=== PATIENT | female | born 1960 | race Caucasian/White ===

== ENCOUNTER 2017-03-02 11:30 | Emergency (ER) | payer BC ==
[2017-03-02 11:49] VITALS: BP 141/83; PULSE 80; TEMP 97.7; BMI 21.5
--- NOTE | 2017-03-02 12:15 | PDOC ---
History of Present Illness - General Chief Complaint: Cold Symptoms Stated Complaint: SINUS INFECTION Time Seen by Provider: 03/02/17 11:41 History Source: Patient Exam Limitations: No Limitations - History of Present Illness Initial Comments: 03/02/17 12:11 56y F hx of htn, hl, presents with nasal congestion, ear pain, sore throat, mild cough without associated fever, cp, sob, leg swelling x 4 days since coming back from [place] where everyone was sick. no associated n/v, diarrhea, abd pain, back pain. Pt endorses mild frontal headache. Past History - Past Medical History Allergies/Adverse Reactions: Allergies Allergy/AdvReac Type Severity Reaction Status Date / Time No Known Allergies Allergy Verified 03/02/17 11:31 Home Medications: Ambulatory Orders Amox-Tr/K Cl [Augmentin - 875Mg Tablet] 1 tab PO BID #14 tablet 03/02/17 Lisinopril [Prinivil] 20 mg PO DAILY 03/02/17 Metoprolol Succinate 25 mg PO DAILY 03/02/17 Multivitamin [Multiple Vitamins] 1 each PO DAILY 03/02/17 Oxymetazoline HCl [Afrin] 15 ml NS BID #1 mist 03/02/17 Rosuvastatin Calcium [Crestor] 10 mg PO DAILY 03/02/17 Cancer: Yes (LEFT BREAST-LUMPECTOMY) Cardiac Disorders: Yes (HX AFIB) COPD: No HTN: Yes Hypercholesterolemia: Yes - Suicide/Smoking/Psychosocial Hx Smoking History: Never smoked Have you smoked in the past 12 months: No Information on smoking cessation initiated: No Hx Alcohol Use: No Drug/Substance Use Hx: No Substance Use Type: None Review of Systems - Review of Systems Able to Perform ROS?: Yes Comments:: 03/02/17 12:12 Constitutional - no reported Fever, Chills, HEENT: +nasal congestion, ear pain, sore throat no reported vision changes, Respiratory: +cough no reported , sob, hemoptysis Cardiac: no reported chest pain, palpitations, light headedness, leg swelling Abd/GI: no reported abd pain, nausea, vomiting, blood per rectum, melena, diarrhea : no reported dysuria, frequency, discharge Musculskelatal - no reported back pain, joint swelling skin - no reported bruising, erythema, rash neurological: + headache no reported, numbness, focal weakness, tingling, ataxia , hematologic: no reported anemia, easy bruising, easy bleeding *Physical Exam - Vital Signs Last Vital Signs Temp Pulse Resp BP Pulse Ox 97.7 F 80 20 141/83 99 03/02/17 11:30 03/02/17 11:30 03/02/17 11:30 03/02/17 11:30 03/02/17 11:30 - Physical Exam Comments: 03/02/17 12:13 GENERAL: The patient is awake, alert, and fully oriented, Nontoxic - in no acute distress. HEAD: Normocephalic, atraumatic, mild tendeness to sinuses on palpation. EYES: extraocular movements intact, sclera anicteric, conjunctiva clear. ENT: smalla mt of d/c in nares, Normal voice, Moist mucous membranes, posterior pharynx clear, mild fullness w/o erythema in L TM NECK: Normal range of motion, supple LUNGS: Breath sounds equal, clear to auscultation bilaterally. No wheezes, no rhonchi, no rales. HEART: Regular rate and rhythm, normal S1 and S2 without murmur, rub or gallop. ABDOMEN: Soft, nontender, normoactive bowel sounds. PSYCH: Normal mood, normal affect. Medical Decision Making - Medical Decision Making 03/02/17 12:14 suspect common cold/nasopharyngitis pt tried suppportive care at home including nettipot without significant improvement will have pt try afrin (very lmited use) and will give abx for persistent symptoms beyond 7 days for possible sinusitis pmd fu I discussed the physical exam findings, ancillary test results and final diagnoses with the patient. I answered all of the patient's questions. The patient was satisfied with the care received and felt comfortable with the discharge plan and treatment plan. The patient will call their primary care physician within 24 hours to arrange follow-up and will return to the Emergency Department with any new, persistent or worsening symptoms. *DC/Admit/Observation/Transfer Diagnosis at time of Disposition: Upper respiratory infection Qualifiers: URI type: acute nasopharyngitis (common cold) Qualified Code(s): J00 - Acute nasopharyngitis [common cold] - Discharge Dispostion Disposition: HOME Condition at time of disposition: Improved Admit: No - Prescriptions Prescriptions: Amox-Tr/K Cl [Augmentin - 875Mg Tablet] 1 tab PO BID #14 tablet Oxymetazoline HCl [Afrin] 15 ml NS BID #1 mist - Referrals - Patient Instructions Printed Discharge Instructions: DI for Viral Upper Respiratory Infection -- Adult, DI for Common Cold Additional Instructions: Return to the emergency department immediately with ANY new, persistent or worsening symptoms including fever,c hills, shortness of breath, headache, or any other concerns. Make sure you stay well hydrated. Use tylenol or motrin as needed for any ahces or fever. Do not start the antibiotics unless you hav symptoms past 03/05. You MUST call and follow up with your doctor tomorrow for further evaluation of your symptoms. Results were discussed with you. Please make sure your doctor reviews the results of your emergency evaluation. - Post Discharge Activity Forms/Work/School Notes: Back to Work
== END 2017-03-02 12:19 | disposition home or self-care (01) ==
LOC: FER 11:30
DX: J00 Acute nasopharyngitis [common cold] (principal); I10 Essential (primary) hypertension; E78.5 Hyperlipidemia, unspecified; I48.91 Unspecified atrial fibrillation; Z85.3 Personal history of malignant neoplasm of breast
CPT/HCPCS: 99282-25

== ENCOUNTER 2017-04-22 11:17 | Emergency (ER) | payer BC ==
[2017-04-22 11:37] VITALS: BMI 21.5
[2017-04-22] MEDS ORDERED: MECLIZINE HCL 25 MG TABLET (FP) PO ONE (11:50)
[2017-04-22] MEDS ORDERED: MECLIZINE HCL 25 MG TABLET (FP) ONE (11:53)
[2017-04-22 11:58] VITALS: TEMP 98.2
--- NOTE | 2017-04-22 11:58 | PDOC ---
History of Present Illness - General History Source: Patient Exam Limitations: No Limitations - History of Present Illness Initial Comments: 04/22/17 12:12 The patient is a 56-year-old female, with a significant past medical history of A-fib, HTN, hypercholesterolemia, peripheral disease, and left breast lumpectomy , who presents to the ED with vertigo symptoms today. The patient is a hospice case manager in the hospital and developed room spinning, nausea, diaphoresis, mouth dryness, and lightheadedness after turning in her chair to speak to her colleague. She denies any loss of consciousness, difficulty speaking, weakness on one side vs the other, or ear pain/ringing. She reports that her symptoms are similar to her past episodes of vertigo, which resolved after the patient received meclizine. The patient reports that she did not eat dinner yesterday because she had a busy day in the office, and had no breakfast today. The patient denies any fever, chills, vomiting, diarrhea, or abdominal pain. Denies any chest pain or shortness of breath. <Sandra Flores - Last Filed: 04/22/17 12:24> <Gabe Uriostegui - Last Filed: 04/22/17 13:48> - General Chief Complaint: Lightheaded Stated Complaint: Nausea/DIZZINES Time Seen by Provider: 04/22/17 11:24 Past History <Sandra Flores - Last Filed: 04/22/17 12:24> - Past Medical History Cancer: Yes (LEFT BREAST-LUMPECTOMY) Cardiac Disorders: Yes (HX AFIB) CVA: No (vertigo) COPD: No HTN: Yes Hypercholesterolemia: Yes Other medical history: vertigo - Suicide/Smoking/Psychosocial Hx Smoking History: Never smoked Have you smoked in the past 12 months: No Information on smoking cessation initiated: No Hx Alcohol Use: No Drug/Substance Use Hx: No Substance Use Type: None <Gabe Uriostgeui - Last Filed: 04/22/17 13:48> - Past Medical History Allergies/Adverse Reactions: Allergies Allergy/AdvReac Type Severity Reaction Status Date / Time No Known Allergies Allergy Verified 04/22/17 11:34 Home Medications: Ambulatory Orders Amox-Tr/K Cl [Augmentin 875-125mg Tablet -] 1 tab PO BID #14 tablet 03/02/17 Lisinopril [Prinivil] 20 mg PO DAILY 03/02/17 Metoprolol Succinate 25 mg PO DAILY 03/02/17 Multivitamin [Multiple Vitamins] 1 each PO DAILY 03/02/17 Oxymetazoline HCl [Afrin] 15 ml NS BID #1 mist 03/02/17 Rosuvastatin Calcium [Crestor] 10 mg PO DAILY 03/02/17 Meclizine HCl [Antivert -] 50 mg PO TID PRN #30 tablet 04/22/17 Review of Systems - Review of Systems Able to Perform ROS?: Yes <Sandra Flores - Last Filed: 04/22/17 12:24> - Review of Systems Constitutional: No: Chills, Fever HEENTM: No: Recent change in vision, Double Vision Respiratory: No: Shortness of Breath Cardiac (ROS): No: Chest Pain, Syncope ABD/GI: Yes: Nausea. No: Diarrhea, Vomiting Neurological: Yes: Dizziness. No: Headache, Weakness All Other Systems: Reviewed and Negative <Gabe Uriostegui - Last Filed: 04/22/17 13:48> *Physical Exam - Vital Signs Last Vital Signs Temp Pulse Resp BP Pulse Ox 98.2 F 90 18 150/86 100 04/22/17 11:17 04/22/17 11:17 04/22/17 11:17 04/22/17 11:17 04/22/17 11:17 - Physical Exam Comments: 04/22/17 12:13 GENERAL: The patient is awake, alert, and fully oriented, in no acute distress. HEAD: Normal with no signs of trauma. EYES: Pupils equal, round and reactive to light, extraocular movements intact, sclera anicteric, conjunctiva clear with no pallor. ENT: Ears normal, nares patent, oropharynx clear without exudates. Moist mucous membranes. NECK: Normal range of motion, supple without lymphadenopathy, JVD, or masses. LUNGS: Breath sounds equal, clear to auscultation bilaterally. No wheeze/ crackles. HEART: Regular rate and rhythm, normal S1 and S2 without murmur or rub. ABDOMEN: Soft/nontender/nondistended. BS wnl. No guarding or rebound. No palpable masses. No hepatosplenomegaly. EXTREMITIES: Normal range of motion, no edema. No clubbing or cyanosis. No cords, erythema, or tenderness. PSYCH: Normal mood, normal affect. SKIN: Warm, Dry, normal turgor, no rashes or lesions noted. NEURO: Mental status: The patient is alert and oriented x3. Cranial nerves: Cranial nerves II through XII are intact Motor: The upper extremities are 5 over 5 in all muscle groups. The lower extremities are 5 over 5 in all muscle groups. No pronator drift. Sensation: Sensation is intact to light touch throughout. Cerebellar: [id number] is normal in both upper extremities. Heel-knee- king is normal in both lower extremities. Reflexes: 2+ and symmetric in the upper and lower extremities. Gait: Normal. Heel and toe walking are normal. Tandem gait is normal. (+)Vertigo is exacerbated with rightward head rotation. <Sanrda Flores - Last Filed: 04/22/17 12:24> - Vital Signs Last Vital Signs Temp Pulse Resp BP Pulse Ox 9802 F H 90 18 150/86 100 04/22/17 11:17 04/22/17 11:17 04/22/17 11:17 04/22/17 11:17 04/22/17 11:17 <Gabe Uriostegui - Last Filed: 04/22/17 13:48> Heart Score/ECG Review #1 ECG reviewed & interpreted by me at: 11:35 General ECG Interpretation: Sinus Rhythm, Normal Rate (76), Normal Intervals ( QTC slightly elevated at 488), No acute ischemic changes <Gabe Uriostegui - Last Filed: 04/22/17 13:48> ED Treatment Course - Medications Given in the ED: ED Medications Discontinued Medications Generic Name Dose Route Start Last Admin Trade Name Freq PRN Reason Stop Dose Admin Meclizine HCl 50 mg 04/22/17 11:50 04/22/17 11:56 Antivert - PO 04/22/17 11:51 50 mg ONCE ONE Administration <Sandra Flores - Last Filed: 04/22/17 12:24> Medical Decision Making - Medical Decision Making 04/22/17 11:56 A portion of this note was documented by scribe services under my direction. I have reviewed the details of the note, within reason, and agree with the documentation with the following case summary and management plan written by me. 56-year-old female with history of hypertension and peripheral vertigo presents with positional dizziness. Patient is a hospice case manager in the hospital, she turned in her chair speak to her colleague and developed room spinning with nausea, diaphoresis, lightheadedness. No actual loss of consciousness, the vertigo would resolve but return with any positional changes, presents for evaluation. Denies any cardiopulmonary complaints, states similar to her past vertigo which was treated with meclizine successfully. Patient notes she's had decreased by mouth intake due to a busy schedule since yesterday, did not eat dinner or breakfast. Blood pressure within normal limits, 140/70 on my examination Pupils are equal round and reactive to light, extraocular movements are intact Neurological exam is nonfocal, vertigo is reproducible with rightward head deviation and gaze 56-year-old female with presentation consistent with peripheral vertigo, neurologically intact with normal vital signs. Well-appearing, fingerstick glucose was 82. PO intake Trial of meclizine, no indication for emergent imaging Reassess 04/22/17 13:41 Markedly improved after meclizine, now standing/ambulating with normal gaze and improved sxs. neuro intact, BP improved. Agrees with d/c plan on meclizine, understands return criteria. <Gabe Uriostegui - Last Filed: 04/22/17 13:48> *DC/Admit/Observation/Transfer - Attestations Scribe Attestion: 04/22/17 12:17 Documentation prepared by Sandra Flores, acting as medical office technician for Gabe Uriostegui MD. <Sandra Flores - Last Filed: 04/22/17 12:24> <Gabe Uriostegui - Last Filed: 04/22/17 13:48> Diagnosis at time of Disposition: Vertigo - Discharge Dispostion Disposition: HOME Condition at time of disposition: Improved - Prescriptions Prescriptions: Meclizine HCl [Antivert -] 50 mg PO TID PRN #30 tablet PRN Reason: Vertigo - Referrals Referrals: Krysta Jones MD [Primary Care Provider] - Peter Corona MD [Staff Physician] - - Patient Instructions Printed Discharge Instructions: DI for Benign Paroxysmal Positional Vertigo Additional Instructions: Activity as tolerated. Stay hydrated. Your symptoms are typical of peripheral vertigo. Take Meclizine as prescribed as needed for your vertigo. Continue your medications as previously prescribed by your physician. You should follow up with Dr. Jones as soon as possible regarding today's emergency department visit. You can also consider calling a neurologist. Return to the emergency department for any new or concerning symptoms, particularly persistent vertigo, headache, vision change or focal weakness. - Post Discharge Activity
[2017-04-22 14:00] VITALS: BP 131/89; PULSE 69
--- NOTE | 2017-04-22 14:13 | EKG ---
Test Reason : Blood Pressure : / mmHG Vent. Rate : 076 BPM Atrial Rate : 076 BPM P-R Int : 138 ms QRS Dur : 070 ms QT Int : 434 ms P-R-T Axes : -02 013 017 degrees QTc Int : 488 ms NORMAL SINUS RHYTHM PROLONGED QT ABNORMAL ECG WHEN COMPARED WITH ECG OF 04-DEC-2009 02:21, NO SIGNIFICANT CHANGE WAS FOUND Confirmed by MD Deleon Edward ([id number]) on 04/22/2017 2:13:00 PM Referred By: Confirmed By:Jaden Deleon MD
== END 2017-04-22 13:45 | disposition home or self-care (01) ==
LOC: JER 11:17
DX: R42 Dizziness and giddiness (principal); I10 Essential (primary) hypertension
CPT/HCPCS: 82962; 93005; 93010; 99282-25

== ENCOUNTER 2018-12-25 14:30 | Emergency (ER) | payer BC ==
[2018-12-25] MEDS ORDERED: IBUPROFEN 600 MG TABLET (FP) PO ONE ×2 (14:34→14:57)
--- NOTE | 2018-12-25 14:34 | PDOC ---
Rapid Medical Evaluation Medical Evaluation: Allergies Allergy/AdvReac Type Severity Reaction Status Date / Time No Known Allergies Allergy Verified 04/22/17 11:34 I have performed a brief in-person evaluation of this patient. The patient presents with a chief complaint of: c/o R wrist injury; states she slipped in room outside Pertinent physical exam findings: +mild swelling and TTP along ulnar aspect of R wrist/dorsal aspect of R hand I have ordered the following: Xray, motrin The patient will proceed to the ED for further evaluation. 12/25/18 14:32
[2018-12-25 14:37] VITALS: BP 141/87; PULSE 71; TEMP 97.8; BMI 23.3
--- NOTE | 2018-12-25 15:33 | PDOC ---
History of Present Illness - General Chief Complaint: Injury Stated Complaint: RT WRIST HURT Time Seen by Provider: 12/25/18 14:32 - History of Present Illness Initial Comments: 12/25/18 15:28 CHIEF COMPLAINT: wrist pain, fall HISTORY OF PRESENT ILLNESS: 58 yo F presents to fast track s/p fall. Patient reports going to an event last night and slipped and fell on her right arm. She reports full ROM to her right elbow, wrist, hand, and fingers, but that her wrist hurts with movement. Patient denies trauma to head or LOC after fall. No recent travel or sick contacts. PAST MEDICAL HISTORY: Denies past medical history FAMILY HISTORY: Denies SOCIAL HISTORY: Denies tobacco, alcohol, illicit drug use. SURGICAL HISTORY: Denies ALLERGIES: No known drug allergies REVIEW OF SYSTEMS General/Constitutional: Denies fever or chills. Denies weakness, weight change. HEENT: Denies change in vision. Denies ear pain or discharge. Denies sore throat. Cardiovascular: Denies chest pain or shortness of breath. Respiratory: Denies cough, wheezing, or hemoptysis. Gastrointestinal: Denies nausea, vomiting, diarrhea or constipation. Denies rectal bleeding. Genitourinary: Denies dysuria, frequency, or change in urination. Musculoskeletal: Right wrist pain Skin and breasts: Denies rash or easy bruising. Neurologic: Denies headache, vertigo, loss of consciousness, or loss of sensation. Psychiatric: Denies depression or anxiety. PHYSICAL EXAM General Appearance: Well-appearing, appropriately dressed. No apparent distress , no intoxication. HEENT: EOMI, PERRLA, normal ENT inspection, normal voice, TMs normal, pharynx normal. No conjunctival pallor. No photophobia, scleral icterus. Neck: Supple. Trachea midline. No tenderness, rigidity, carotid bruit, stridor , lymphadenopathy, or thyromegaly. Respiratory/Chest: Lungs CTAB. No shortness of breath, chest tenderness, respiratory distress, accessory muscle use. No crackles, rales, rhonchi, stridor , wheezing, dullness Cardiovascular: RRR. S1, S2. No JVD, murmur, bradycardia, tachycardia. Vascular Pulses: Dorsalis-Pedis (R): 2+, Dorsalis-Pedis (L): 2+ Gastrointestinal/Abdominal: Normal bowel sounds. Abdomen soft, non-distended. No tenderness or rebound tenderness. No organomegaly, pulsatile mass, guarding , hernia, hepatomegaly, splenomegaly. Lymphatic: No adenopathy, tenderness. Musculoskeletal/Extremities: Ecchymosis to ulnar aspect to right wrist, full flexion/extension, neurovascularly intact. Normal inspection. FROM of all extremities, normal capillary refill. Pelvis Stable. No CVA tenderness. No tenderness to extremities, pedal edema, swelling, erythema or deformity. Integumentary: Appropriate color, dry, warm. No cyanosis, erythema, jaundice or rash Neurologic: inductor tester II-XII intact. Fully oriented, alert. Appropriate mood/affect. Motor strength 5/5. No appreciable EOM palsy, facial droop or sensory deficit. Past History - Past Medical History Allergies/Adverse Reactions: Allergies Allergy/AdvReac Type Severity Reaction Status Date / Time No Known Allergies Allergy Verified 12/25/18 14:33 Home Medications: Ambulatory Orders Amox-Tr/K Cl [Augmentin 875-125mg Tablet -] 1 tab PO BID #14 tablet 03/02/17 Lisinopril [Prinivil] 20 mg PO DAILY 03/02/17 Metoprolol Succinate 25 mg PO DAILY 03/02/17 Multivitamin [Multiple Vitamins] 1 each PO DAILY 03/02/17 Oxymetazoline HCl [Afrin] 15 ml NS BID #1 mist 03/02/17 Rosuvastatin Calcium [Crestor] 10 mg PO DAILY 03/02/17 Meclizine HCl [Antivert -] 50 mg PO TID PRN #30 tablet 04/22/17 Diclofenac Sodium 50 mg PO BID #20 tablet. 12/25/18 Cancer: Yes (LEFT BREAST-LUMPECTOMY) Cardiac Disorders: Yes (HX AFIB) CVA: No (vertigo) COPD: No HTN: Yes Hypercholesterolemia: Yes - Psycho Social/Smoking Cessation Hx Smoking History: Never smoked Have you smoked in the past 12 months: No Hx Alcohol Use: No Drug/Substance Use Hx: No Substance Use Type: None *Physical Exam - Vital Signs Last Vital Signs Temp Pulse Resp BP Pulse Ox 97.8 F 71 18 141/87 98 12/25/18 14:33 12/25/18 14:33 12/25/18 14:33 12/25/18 14:33 12/25/18 14:33 ED Treatment Course - Medications Given in the ED: ED Medications Discontinued Medications Generic Name Dose Route Start Last Admin Trade Name Lamar PRN Reason Stop Dose Admin Ibuprofen 600 mg 12/25/18 14:34 12/25/18 14:58 Motrin - PO 12/25/18 14:35 600 mg ONCE ONE Administration Medical Decision Making - Medical Decision Making 12/25/18 15:31 58 yo F presents to fast track with wrist pain s/p fall. -wrist x-ray x-ray negative wrist splint, NSAIDS Advised patient to take medication as prescribed and follow up with ortho if symptoms persist.. Advised patient of signs and symptoms for return to ED. Patient verbalized understanding and agrees to plan. Discharge - Discharge Information Problems reviewed: Yes Clinical Impression/Diagnosis: Ecchymosis of wrist Wrist strain Qualifiers: Encounter type: initial encounter Laterality: right Qualified Code(s): S66.911A - Strain of unspecified muscle, fascia and tendon at wrist and hand level, right hand, initial encounter Condition: Stable Disposition: HOME - Admission No - Additional Discharge Information Prescriptions: Diclofenac Sodium 50 mg PO BID #20 tablet.dr - Follow up/Referral Referrals: Krysta Jones MD [Primary Care Provider] - Vance Jean MD [Staff Physician] - - Patient Discharge Instructions Patient Printed Discharge Instructions: DI for Wrist Strain Additional Instructions: Please take medication as prescribed. As discussed, if your symptoms do not improve in 5-7 days, please follow up with an orthopedics for further evaluation and a possible MRI or physical therapy. If you experience any loss of sensation to your extremities, any severe swelling or increased pain to your wrists, please return to the ER. - Post Discharge Activity
== END 2018-12-25 15:44 | disposition home or self-care (01) ==
LOC: JERFT 14:30
PROC: 2W3CX1Z Immobilization of Right Lower Arm using Splint (ICD-10-PCS; principal; 2018-12-25)
DX: S66.811A Strain of other specified muscles, fascia and tendons at wrist and hand level, right hand, initial encounter (principal); S60.211A Contusion of right wrist, initial encounter; W01.0XXA Fall on same level from slipping, tripping and stumbling without subsequent striking against object, initial encounter; Y93.89 Activity, other specified; Y92.89 Other specified places as the place of occurrence of the external cause; Y99.8 Other external cause status; I10 Essential (primary) hypertension; E78.00 Pure hypercholesterolemia, unspecified; I48.91 Unspecified atrial fibrillation; Z85.3 Personal history of malignant neoplasm of breast
CPT/HCPCS: 73110-TC-RT-FY; 73130-TC-RT-FY; 99281-25

== ENCOUNTER 2021-07-15 12:08 | Emergency (ER) | payer BC ==
[2021-07-15 12:19] VITALS: BP 157/81; PULSE 87; TEMP 98.9; BMI 24.3
[2021-07-15] MEDS ORDERED: IBUPROFEN 400 MG TABLET (FP) PO ONE ×2 (12:36→12:38)
[2021-07-15] MEDS ORDERED: LIDOCAINE VISCOUS 2% ORAL/TOP 15 ML UNIT-DOSE CUP MM ONE (12:36)
[2021-07-15] MEDS ORDERED: LIDOCAINE VISCOUS 2% ORAL/TOP 15 ML UNIT-DOSE CUP ONE (12:38)
== END 2021-07-15 12:58 | disposition home or self-care (01) ==
LOC: FER 12:08
DX: K12.0 Recurrent oral aphthae (principal)
CPT/HCPCS: 99283-25

== ENCOUNTER 2024-02-07 10:37 | Emergency (ER) | payer OTHER ==
[2024-02-07 10:57] VITALS: BP 124/74; PULSE 86; RESP 18; TEMP 97.9; BMI 23.1
[2024-02-07] MEDS ORDERED: IBUPROFEN 600 MG TABLET (FP) PO ONE (11:49)
[2024-02-07] MEDS ORDERED: ONDANSETRON *ODT* 4 MG TABLET ONE (11:50)
[2024-02-07] MEDS: SODIUM CHLORIDE FOR INHALATION 3 ML VIAL.NEB IH ONE (11:59)
[2024-02-07] MEDS: ONDANSETRON *ODT* 4 MG TABLET SL ONE (11:59)
[2024-02-07] MEDS: IBUPROFEN 600 MG TABLET (FP) PO ONE (11:59)
== END 2024-02-07 13:30 | disposition home or self-care (01) ==
LOC: JERFT 10:37
DX: R09.81 Nasal congestion (principal); R05.9 Cough, unspecified; R51.9 Headache, unspecified; M79.10 Myalgia, unspecified site; J06.9 Acute upper respiratory infection, unspecified; Z20.822 Contact with and (suspected) exposure to COVID-19
CPT/HCPCS: 0241U-QW; 71046-TC-FY; 99284-25; Q0162

== ENCOUNTER 2024-06-27 15:10 | Emergency (ER) | payer OTHER, MEDICARE ==
[2024-06-27 15:48] VITALS: BP 135/69; PULSE 100; RESP 185; TEMP 101.3; BMI 21.9
[2024-06-27] MEDS ORDERED: KETOROLAC TROMETHAMINE 30 MG/1 ML VIAL ONE (16:10)
[2024-06-27] MEDS: KETOROLAC TROMETHAMINE 15 MG/ML VIAL IM ONE (16:16)
[2024-06-27] MEDS: FLUTICASONE PROP 0.05% 16 GM NASAL SPRAY NS ONE (16:26)
== END 2024-06-27 16:50 | disposition home or self-care (01) ==
LOC: FER 15:10
PROC: 3E0233Z Introduction of Anti-inflammatory into Muscle, Percutaneous Approach (ICD-10-PCS; principal; 2024-06-27)
DX: U07.1 COVID-19 (principal); J06.9 Acute upper respiratory infection, unspecified; R50.9 Fever, unspecified
CPT/HCPCS: 0241U-QW; 71045-TC-FY; 99284-25